=== PATIENT | male | born 1950 | race Caucasian/White ===

== ENCOUNTER 2023-03-01 16:57 | Inpatient (IN) ==
[2023-03-01 17:48] LABS: Basophils # (auto) 0.07 K/uL (0.00-0.20); Basophils % (auto) 0.9 %; Eosinophils # (auto) 0.12 K/uL (0.00-0.50); Eosinophils % (auto) 1.5 %; Hematocrit (blood only) 38.1 % (42.0-52.0); Hemoglobin 12.8 g/dl (14.0-18.0); Immature Granulocytes # (auto) 0.03 K/uL (0.01-0.20); Immature Granulocytes % (auto) 0.4 %; Lymphocytes # (auto) 2.85 K/uL (1.20-3.40); Lymphocytes % (auto) 35.8 %; Mean Corpuscular Hemoglobin 32.2 pg (25.0-34.0); Mean Corpuscular Hgb Conc 33.6 g/dL (32.0-36.0); Mean Platelet Volume 10.1 fL (9.4-12.4); Monocytes # (auto) 0.88 K/uL (0.11-0.59); Neutrophils # (auto) 4.02 K/uL (1.40-6.50); Neutrophils % (auto) 50.4 %; Platelet Count 213 K/uL (130-400); RDW Coefficient of Variation 14.5 % (11.5-14.5); RDW Standard Deviation 51.2 fL (36.4-46.3); Red Blood Count 3.97 M/uL (4.70-6.10); White Blood Count 7.97 K/ul (4.8-10.8)
[2023-03-01 18:03] LABS: Albumin Globulin Ratio 1.1 (0.9-2); Albumin Level 4.4 gm/dl (3.4-5.0); BUN Creatinine Ratio 14.5 (10-20); Bilirubin,Total 2.9 mg/dl (0.2-1.0); Calcium 9.3 mg/dl (8.6-10.3); Creatinine Clr Calc Pharmacy 66.6 ml/min; Est GFR (African American) 72.8 ml/min; Est GFR (Non-African American) 62.8 ml/min; Potassium 4.2 mmol/L (3.5-5.1); Total Protein 8.4 gm/dl (6.0-8.3)
[2023-03-01 18:06] LABS: Appearance Urine Clear (Clear); Bacteria Urine Automated Negative (Negative); Bilirubin Urine Negative (Negative); Blood Urine Negative (Negative); Cast Urine Automated 0 /lpf (0-5); Color Urine Dark Yellow; Epithelial Cell Urine Auto 0-5 /lpf (0-5); Glucose Urine UA Negative (Negative); Ketones Urine Negative (Negative); Leukocyte Esterase Urine Negative (Negative); Nitrite Urine Negative (Negative); Protein Urine Trace (Negative); RBC Urine Automated 0-4 /hpf (0-4); Specific Gravity Urine 1.012 (1.000-1.030); Urobilinogen Urine Negative (Negative); WBC Urine Automated 0 /hpf (0-5); pH Urine 5.5 (4.5-7.5)
--- NOTE | 2023-03-01 18:53 | Emergency Department Note ---
Impression & Plan Elevated LFTs, Acute Lyme disease with erythema migrans lesion 5 cm or greater in diameter ED Provider Note INFORMANT: Patient and ED PROVIDER(S): Bernardino Smith MD CHIEF COMPLAINT: Elevated LFTs PLAN: Disposition: Admitted Condition: Good Outpatient prescription management: none Referral: None MEDICAL DECISION MAKING: Patient presented because of elevated LFTs. Labs were performed. Physical examination was concerning for disseminated erythema migrans. Patient does have elevated LFTs on laboratory testing but this has findings concerning for an obstructive pattern. Patient does not have right upper quadrant abdominal pain. Ultrasound imaging was performed and revealed a gallbladder full of stones as well as nodular appearance of the liver. The patient was treated with IV Rocephin as well as doxycycline. His CBC was unremarkable. Lyme IgG and IgM w ere positive. Anaplasmosis smear negative. Babesia testing did not reveal any findings on smear but PCR sent. The patient had a consultation made with Dr. Antunez of gastroenterology. Given the LFTs he recommended an MRCP and further evaluation in the hospital. I believe this is very reasonable and consultation was made with the [facility] hospitalist service. Patient was evaluated in the ER and admitted for further management. After review of the information above and other included data, I feel the patient requires admission. Discussed with digital marketing program manager Triage Nursing notes reviewed and agree them. Vital Signs: reviewed and remarkable for no significant abnormalities Prior /Outside records reviewed: Prior [facility] laboratory and outpatient records reviewed. Differential diagnosis: Disseminated Lyme disease, hepatitis, food borne illness, infections, biliary pathology, as well as others were entertained. Diagnostics, as interpreted by me: ECG: none Cardiac Monitoring: Cardiac monitoring ordered by me: The patient was placed on continuous cardiac monitoring and observed. It revealed a normal sinus rhythm at 81 beats per minute without ectopy or evidence of dysrhythmia. Medical decision rules: none Imaging studies: Ultrasound as above HPI: The patient is a 72year old male who presents to the Emergency Room with complaints of abnormal labs. This was found at outpatient labs done today. Patient also noted feeling fatigued over the last week or so. The patient also notes the following associated symptoms, occasional fevers, dark urine. The patient has taken no medication for relieving factors. Current pain is rated as 0 /10. patient has a history of anaplasmosis 2 years ago. He also notes multiple tick bites pt denies. The patient notes pulling a tick off himself about 1 month ago. He does note having several round red lesions pop up on his chest over the last few days. also notes are some on his back. LOC, headache, diaphoresis, visual changes, neck pain, chest pain, breathing difficulties, nausea, vomiting, abdominal pain, back pain, melena, hematochezia, urinary symptoms, numbness, lymphadenopathy, or other complaints. PAST MEDICAL HISTORY: See Below, anaplasmosis, scleroderma PAST SURGICAL HISTORY: See Below, SOCIAL HISTORY: See Below, HOME MEDICATIONS: See Below ALLERGIES: See Below VITALS: See Below PHYSICAL EXAMINATION: GENERAL: Awake, alert, nontoxic-appearing, in no distress HENT: Normocephalic, atraumatic. Oropharynx unremarkable. EYES: Normal conjunctiva. Sclera non-icteric. NECK: Inspection normal. Non-tender. Supple. No nuchal rigidity. FROM. No masses. RESPIRATORY: Clear to auscultation. No wheezes. No rales. Normal respiratory effort. CARDIAC: Normal rate. Normal rhythm. No murmurs. No rubs. Extremities warm and well perfused. Pulses equal. No JVD. GI: Soft, non-distended. No tenderness to palpation. No rebound or guarding. No masses. RECTAL: Deferred. MUSCULOSKELETAL: Atraumatic. Clubbing of the upper extremities noted chest examination reveals no tenderness. The back is symmetrical on inspection without obvious abnormality. There is no CVA tenderness to palpation. No joint edema. LOWER EXTREMITIES: Calves are equal size bilaterally and non-tender. No edema. No discoloration. NEURO: Normal sensorium. No sensory or motor deficits noted. SKIN: No multiple scattered erythematous round lesions consistent with erythema migrans on the trunk as well as the right upper extremity. No petechia, purpura, or jaundice noted. Past Med/Surg History Social History Smoking Status: Former smoker Tobacco Type: Cigarettes Preferred Language: French Feels Safe at Home: Yes Allergies Allergies Allergy/AdvReac Type Severity Reaction Status Date / Time No Known Drug Allergies Allergy Unknown . Verified 06/15/15 12:38 Bactrim AdvReac Mild RASH Verified 06/29/15 13:37 Home Meds Home Medications Medication Instructions Recorded Confirmed CYCLOBENZAPRINE HCL (FLEXERIL) 10 mg PO TID PRN Pain #0 tabs 06/13/15 03/01/23 LORAZEPAM (ATIVAN) 1 mg PO BID PRN Anxiety #0 tabs 06/13/15 03/01/23 albuterol sulfate 90 mcg/actuation 2 inh inhalation Q4H PRN Other 03/01/23 03/01/23 aerosol inhaler omeprazole 20 mg capsule,delayed 20 mg PO DAILY 03/01/23 03/01/23 release Results & Data (ED) Vital Signs Vital Signs - 24 hr 03/01/23 17:03 03/01/23 17:32 03/01/23 17:29 Temperature 37.0 C Temperature Source Temporal Artery Scan Pulse Rate 96 H 90 Pulse Rate [Apical] 90 Respiratory Rate 20 13 13 Respiratory Effort / Characteristics Non-Labored Respiratory Depth Normal Blood Pressure 139/76 Blood Pressure [Right Arm] 138/83 Blood Pressure Mean 97 Blood Pressure Mean [Right Arm] 101 Blood Pressure Position [Right Arm] Semi-fowlers Pulse Oximetry 96 96 96 Oxygen Delivery Method Room Air Room Air Room Air Sepsis Recent Fever Within 48 Hours No Sepsis New/Unexplained Change in Mental Status N/A Sepsis Action Taken by Nursing No Action Required 03/01/23 17:34 03/01/23 20:43 03/01/23 21:25 Temperature Temperature Source Pulse Rate 95 H 87 Pulse Rate [Apical] 82 Respiratory Rate 20 Respiratory Effort / Characteristics Respiratory Depth Blood Pressure Blood Pressure [Right Arm] 117/70 Blood Pressure Mean Blood Pressure Mean [Right Arm] 85 Blood Pressure Position [Right Arm] Semi-fowlers Pulse Oximetry 96 Oxygen Delivery Method Room Air Sepsis Recent Fever Within 48 Hours Sepsis New/Unexplained Change in Mental Status Sepsis Action Taken by Nursing Laboratory Data 03/01/23 17:21 03/01/23 17:21 Lab Results 03/01/23 03/01/23 03/01/23 Range/Units 17:21 17:21 17:44 WBC 7.97 (4.8-10.8) K/ul RBC 3.97 L (4.70-6.10) M/uL Hgb 12.8 L (14.0-18.0) g/dl Hct 38.1 L (42.0-52.0) % MCV 96.0 (80.0-100.0) fL MCH 32.2 (25.0-34.0) pg MCHC 33.6 (32.0-36.0) g/dL RDW Std Deviation 51.2 H (36.4-46.3) fL RDW Coeff of Loreta 14.5 (11.5-14.5) % Plt Count 213 (130-400) K/uL MPV 10.1 (9.4-12.4) fL Immature Gran % (Auto) 0.4 % Neut % (Auto) 50.4 % Lymph % (Auto) 35.8 % [place] % (Auto) 11.0 % Eos % (Auto) 1.5 % Baso % (Auto) 0.9 % Neut # (Auto) 4.02 (1.40-6.50) K/uL Lymph # (Auto) 2.85 (1.20-3.40) K/uL [place] # (Auto) 0.88 H (0.11-0.59) K/uL Eos # (Auto) 0.12 (0.00-0.50) K/uL Baso # (Auto) 0.07 (0.00-0.20) K/uL Immature Gran # (Auto) 0.03 (0.01-0.20) K/uL Sodium 133 L (136-145) mmol/L Potassium 4.2 (3.5-5.1) mmol/L Chloride 99 (98-107) mmol/L Carbon Dioxide 25 (21-32) mmol/L Anion Gap 9 (3-11) BUN 17 (6-23) mg/dl Creatinine 1.17 (0.6-1.4) mg/dl Est Cr Clr Drug Dosing 66.6 ml/min Est GFR ( Amer) 72.8 ml/min Est GFR (Non-Af Amer) 62.8 ml/min BUN/Creatinine Ratio 14.5 (10-20) Glucose 108 H (70-99(Fasting)) mg/dl Calcium 9.3 (8.6-10.3) mg/dl Total Bilirubin 2.9 H (0.2-1.0) mg/dl AST 119 H (13-39) U/L ALT 255 H (7-52) U/L Alkaline Phosphatase 337 H (34-104) U/L Total Creatine Kinase 92 (30-223) U/L Total Protein 8.4 H (6.0-8.3) gm/dl Albumin 4.4 (3.4-5.0) gm/dl Globulin 4.0 (2.5-4.0) gm/dl Albumin/Globulin Ratio 1.1 (0.9-2) Lipase 74 (11-82) U/L Urine Color Dark Yellow Urine Appearance Clear (Clear) Urine pH 5.5 (4.5-7.5) Ur Specific [place] 1.012 (1.000-1.030) Urine Protein Trace H (Negative) Urine Glucose (UA) Negative (Negative) Urine Ketones Negative (Negative) Urine Blood Negative (Negative) Urine Nitrite Negative (Negative) Urine Bilirubin Negative (Negative) Urine Urobilinogen Negative (Negative) Ur Leukocyte Esterase Negative (Negative) Urine WBC (Auto) 0 (0-5) /hpf Urine RBC (Auto) 0-4 (0-4) /hpf U Hyaline Cast (Auto) 0 (0-5) /lpf U Epithel Cells (Auto) 0-5 (0-5) /lpf Urine Bacteria (Auto) Negative (Negative) Anaplasma Smear See Comment Babesia Smear See Comment Lyme Disease IgG Ab (Negative) Lyme Disease IgM Ab (Negative) 03/01/23 Range/Units 18:17 WBC (4.8-10.8) K/ul RBC (4.70-6.10) M/uL Hgb (14.0-18.0) g/dl Hct (42.0-52.0) % MCV (80.0-100.0) fL MCH (25.0-34.0) pg MCHC (32.0-36.0) g/dL RDW Std Deviation (36.4-46.3) fL RDW Coeff of Loreta (11.5-14.5) % Plt Count (130-400) K/uL MPV (9.4-12.4) fL Immature Gran % (Auto) % Neut % (Auto) % Lymph % (Auto) % [place] % (Auto) % Eos % (Auto) % Baso % (Auto) % Neut # (Auto) (1.40-6.50) K/uL Lymph # (Auto) (1.20-3.40) K/uL [place] # (Auto) (0.11-0.59) K/uL Eos # (Auto) (0.00-0.50) K/uL Baso # (Auto) (0.00-0.20) K/uL Immature Gran # (Auto) (0.01-0.20) K/uL Sodium (136-145) mmol/L Potassium (3.5-5.1) mmol/L Chloride (98-107) mmol/L Carbon Dioxide (21-32) mmol/L Anion Gap (3-11) BUN (6-23) mg/dl Creatinine (0.6-1.4) mg/dl Est Cr Clr Drug Dosing ml/min Est GFR ( Amer) ml/min Est GFR (Non-Af Amer) ml/min BUN/Creatinine Ratio (10-20) Glucose (70-99(Fasting)) mg/dl Calcium (8.6-10.3) mg/dl Total Bilirubin (0.2-1.0) mg/dl AST (13-39) U/L ALT (7-52) U/L Alkaline Phosphatase (34-104) U/L Total Creatine Kinase (30-223) U/L Total Protein (6.0-8.3) gm/dl Albumin (3.4-5.0) gm/dl Globulin (2.5-4.0) gm/dl Albumin/Globulin Ratio (0.9-2) Lipase (11-82) U/L Urine Color Urine Appearance (Clear) Urine pH (4.5-7.5) Ur Specific [place] (1.000-1.030) Urine Protein (Negative) Urine Glucose (UA) (Negative) Urine Ketones (Negative) Urine Blood (Negative) Urine Nitrite (Negative) Urine Bilirubin (Negative) Urine Urobilinogen (Negative) Ur Leukocyte Esterase (Negative) Urine WBC (Auto) (0-5) /hpf Urine RBC (Auto) (0-4) /hpf U Hyaline Cast (Auto) (0-5) /lpf U Epithel Cells (Auto) (0-5) /lpf Urine Bacteria (Auto) (Negative) Anaplasma Smear Babesia Smear Lyme Disease IgG Ab Positive A (Negative) Lyme Disease IgM Ab Positive A (Negative) Administered Medications Discontinued Medications Ceftriaxone Sodium (Rocephin) 2,000 mg in 70 mls @ 140 mls/hr IV NOW STA Stop: 03/01/23 20:09 Last Infusion: 03/01/23 20:37 Dose: 0 mls/hr Documented By: Admin: 03/01/23 20:00 Dose: 140 mls/hr Documented By: QGV Doxycycline Hyclate 100 mg/ (Dextrose) 110 mls @ 50 mls/hr IV NOW STA Stop: 03/01/23 22:32 Last Infusion: 03/01/23 23:11 Dose: 0 mls/hr Documented By: Admin: 03/01/23 20:37 Dose: 50 mls/hr Documented By: AB Imaging Data Radiologist's Impression: Gallbladder Ultrasound 03/01/23 17:49 ULTRASOUND RIGHT UPPER QUADRANT ABDOMEN CLINICAL HISTORY: Elevated hepatic transaminases. COMPARISON STUDY: No priors. TECHNIQUE: Real-time, grayscale, and color flow sonography of the right upper quadrant of the abdomen was performed. Images are reviewed in the transverse and longitudinal planes. FINDINGS: Liver: The liver is normal in size and demonstrates heterogeneously increased echotexture indicating steatosis. There is mild nodularity of the hepatic surface contour suggesting morphologic changes of cirrhosis. There is no intrahepatic biliary ductal dilatation. The main portal vein is patent. Gallbladder: The gallbladder is filled with shadowing gallstones. The gallbladder wall is mildly thickened measuring up to 3 mm. No pericholecystic fluid is identified and a sonographic Rollins's sign is reportedly absent. The common bile duct measures up to 0.3 cm in diameter. Pancreas: Not well-visualized due to overlying bowel gas. Right kidney: Survey images of the right kidney demonstrate normal size and echotexture. There is no hydronephrosis. A 2.9 cm cyst arises from the lower pole. Ascites: None. IMPRESSION: 1. The liver shows evidence of steatosis, and nodularity of the surface contour suggests early morphologic change of cirrhosis. 2. Cholelithiasis without sonographic evidence of acute cholecystitis. 3. Mild gallbladder wall thickening is nonspecific and likely related to adjacent hepatocellular disease. If there is strong clinical concern for acute cholecystitis a nuclear hepatobiliary scan could be considered. ACT 112: Negative or not required by law. Electronically signed by: James Orosco M.D. 03/01/2023 7:36 PM Discharge Plan Visit Data Chief Complaint: Abnormal Labs/Diagnostic Testing Stated Complaint: ABNORMAL TESTS ED Provider: Bernardino Smith Discharge Problem: Elevated LFTs, Acute Lyme disease with erythema migrans lesion 5 cm or greater in diameter Patient Disposition: Admitted As Inpatient Discharge Instructions Interventions: ED Discharge Assessment Last Done: 03/01/23 23:15
[2023-03-01 19:33] LABS: Lyme Ab IgG w/WB Rflx Positive (Negative); Lyme Ab IgM w/WB Rflx Positive (Negative)
--- NOTE | 2023-03-01 19:38 | Ultrasound Report ---
ULTRASOUND RIGHT UPPER QUADRANT ABDOMEN CLINICAL HISTORY: Elevated hepatic transaminases. COMPARISON STUDY: No priors. TECHNIQUE: Real-time, grayscale, and color flow sonography of the right upper quadrant of the abdomen was performed. Images are reviewed in the transverse and longitudinal planes. FINDINGS: Liver: The liver is normal in size and demonstrates heterogeneously increased echotexture indicating steatosis. There is mild nodularity of the hepatic surface contour suggesting morphologic changes of cirrhosis. There is no intrahepatic biliary ductal dilatation. The main portal vein is patent. Gallbladder: The gallbladder is filled with shadowing gallstones. The gallbladder wall is mildly thic kened measuring up to 3 mm. No pericholecystic fluid is identified and a sonographic Rollins's sign is reportedly absent. The common bile duct measures up to 0.3 cm in diameter. Pancreas: Not well-visualized due to overlying bowel gas. Right kidney: Survey images of the right kidney demonstrate normal size and echotexture. There is no hydronephrosis. A 2.9 cm cyst arises from the lower pole. Ascites: None. IMPRESSION: 1. The liver shows evidence of steatosis, and nodularity of the surface contour suggests early morpho logic change of cirrhosis. 2. Cholelithiasis without sonographic evidence of acute cholecystitis. 3. Mild gallbladder wall thickening is nonspecific and likely related to adjacent hepatocellular dise ase. If there is strong clinical concern for acute cholecystitis a nuclear hepatobiliary scan could b e considered. ACT 112: Negative or not required by law. Electronically signed by: James Orosco M.D. 03/01/2023 7:36 PM
[2023-03-01] MEDS ORDERED: cefTRIAXone SODIUM 2,000 MG/70 ML BAG IV STA (19:40)
[2023-03-01] MEDS ORDERED: DOXYCYCLINE HYCLATE 100 MG in DEXTROSE 5% 100 ML IV STA (20:21)
--- NOTE | 2023-03-01 22:44 | History & Physical Report ---
Date of Service March 01, 2023 Assessment & Plan (1) Elevated LFTs: Plan: 72-year-old male with past medical history significant for crest syndrome, pulmonary fibrosis, aortic valve sclerosis, GERD, BPH, lipodermatosclerosis of both lower extremities, generalized anxiety disorder, history of anaplasmosis, presents with not feeling well for about 2 weeks and went to PCP today and outpatient labs showed elevated LFTs and advised to come to the ER. Elevated LFTs Icterus present Gallbladder ultrasound shows gallstones and possible early cirrhosis ER discussed with GI plan for MRCP. We will keep n.p.o. for now IV fluids Repeat labs in a.m. we will also do hepatitis panel Anaplasmosis screen negative Acute Lyme disease with erythema migrans lesions greater than 5 cm Patient states he took out tick about 5 weeks ago. Having low-grade fevers for last 2 weeks. History of anaplasmosis in the past Anaplasma screen is negative but could be the cause of elevated LFTs We will monitor the response Crest syndrome Pulmonary fibrosis follows with pulmonary Currently not under any treatment GERD On omeprazole Generalized anxiety disorder Ativan as needed DVT prophylaxis SCDs for now. If no procedure planned can place on [facility] medical floor Full code (2) Acute Lyme disease with erythema migrans lesion 5 cm or greater in diameter: History of Present Illness Chief Complaint: Fevers and not feeling well Primary Care Provider: Brice Rahman MD 72-year-old male with past medical history significant for crest syndrome, pulmonary fibrosis, aortic valve sclerosis, GERD, BPH, lipodermatosclerosis of both lower extremities, generalized anxiety disorder, history of anaplasmosis, presents with not feeling well for about 2 weeks and went to PCP today and outpatient labs showed elevated LFTs and advised to come to the ER. Patient states he took out tick about 5 weeks ago, [place] A month ago he had a fever but that subsided. Since last 2 weeks he is having low-grade fevers in the evenings with night sweats. Loss of appetite last 2 weeks. Not feeling well. Urine became dark last couple of weeks. On and off constipation. No abdominal pain. No chest pain. No back pain. No headaches. No blurred visions or earache or runny nose or sore throat. Occasional cough. Symptoms of difficulty swallowing sometimes because of his GERD. No nausea. Currently resting comfortably hemodynamically stable. Past medical history as mentioned above Past surgical history colonoscopy. Social history . Smoked from 1970- 1972 0.25 packs a day. Alcohol occasional. No drug use Family history father had prostate cancer, hypertension. Mother had CAD fatal [place] at age of 73, hypertension. Sister had TB at age of 9. Brother has diabetes, hypertension. Allergies Allergy/AdvReac Type Severity Reaction Status Date / Time No Known Drug Allergies Allergy Unknown . Verified 06/15/15 12:38 Bactrim AdvReac Mild RASH Verified 06/29/15 13:37 Home Medications Medication Instructions Recorded Confirmed Type CYCLOBENZAPRINE HCL (FLEXERIL) 10 mg PO TID PRN Pain #0 tabs 06/13/15 03/01/23 History LORAZEPAM (ATIVAN) 1 mg PO BID PRN Anxiety #0 tabs 06/13/15 03/01/23 History albuterol sulfate 90 mcg/actuation 2 inh inhalation Q4H PRN Other 03/01/23 03/01/23 History aerosol inhaler omeprazole 20 mg capsule,delayed 20 mg PO DAILY 03/01/23 03/01/23 History release Past Med/Surg History Social History Smoking Status: Former smoker Tobacco Type: Cigarettes Cigarettes Per Day: In the 1969's about a 1/2 pack a day.; Second Hand Exposure: No; Do You Dip or Chew Tobacco: No (In the s.); Tobacco Cessation Education Requested by Patient: No Hx Alcohol Use: Yes Alcohol type: beer and hard liquor Hx Substance Use: No Preferred Language: Puerto Rican Communication Ability: Effective Geodetic Advisor Required: No Beliefs That Will Affect Care: None Current Living Situation: Spouse Other Information That Helps Us Care for You: No Feels Safe at Home: Yes Safety Concerns: Feels Safe At This Time Assistive Devices: Glasses Review of Systems Review of Systems: All systems reviewed & are unremarkable except as noted in HPI & below Physical Exam Physical Exam: General- Not in dsitress Head- atraumatic Eyes- PERRL.Icterus present ENT- oropharynx clear Neck- supple, no JVD, no adenopathy, carotids +2/2, no bruits appreciated Lungs- clear to auscultation no wheezing or crackles. Heart- regular rhythm; no murmur, no gallop. Abdomen- normal bowel sounds, soft, nontender, no distension. Extremities- no pretibial edema, no erythema. Neuro- alert, oriented x 3; PERRL,no facial palsy; no dysarthria; non focal. Skin- bulls eye rash seen on the back> 5cm. erythematous rashes seen on back, abdomen and upper extremity Results & Data Results & Data Vital Signs (Past 12 Hours) Vital Signs Temp Pulse Pulse Resp BP BP Pulse Ox 03/01/23 21:25 87 03/01/23 20:43 82 20 117/70 96 03/01/23 17:34 95 H 03/01/23 17:29 90 13 138/83 96 03/01/23 17:32 90 13 96 03/01/23 17:03 37.0 C 96 H 20 139/76 96 O2 Del Method 03/01/23 21:25 03/01/23 20:43 Room Air 03/01/23 17:34 03/01/23 17:29 Room Air 03/01/23 17:32 Room Air 03/01/23 17:03 Room Air Diagnostic Findings Laboratory Results WBC 7.97 K/ul (4.8-10.8) 03/01/23 17:21 RBC 3.97 M/uL (4.70-6.10) L 03/01/23 17:21 Hgb 12.8 g/dl (14.0-18.0) L 03/01/23 17:21 Hct 38.1 % (42.0-52.0) L 03/01/23 17:21 MCV 96.0 fL (80.0-100.0) 03/01/23 17:21 MCH 32.2 pg (25.0-34.0) 03/01/23 17:21 MCHC 33.6 g/dL (32.0-36.0) 03/01/23 17:21 RDW Std Deviation 51.2 fL (36.4-46.3) H 03/01/23 17:21 RDW Coeff of [place] 14.5 % (11.5-14.5) 03/01/23 17:21 Plt Count 213 K/uL (130-400) 03/01/23 17:21 MPV 10.1 fL (9.4-12.4) 03/01/23 17:21 Immature Gran % (Auto) 0.4 % 03/01/23 17:21 Neut % (Auto) 50.4 % 03/01/23 17:21 Lymph % (Auto) 35.8 % 03/01/23 17:21 Tama % (Auto) 11.0 % 03/01/23 17:21 Eos % (Auto) 1.5 % 03/01/23 17:21 Baso % (Auto) 0.9 % 03/01/23 17:21 Neut # (Auto) 4.02 K/uL (1.40-6.50) 03/01/23 17:21 Lymph # (Auto) 2.85 K/uL (1.20-3.40) 03/01/23 17:21 Tama # (Auto) 0.88 K/uL (0.11-0.59) H 03/01/23 17:21 Eos # (Auto) 0.12 K/uL (0.00-0.50) 03/01/23 17:21 Baso # (Auto) 0.07 K/uL (0.00-0.20) 03/01/23 17:21 Immature Gran # (Auto) 0.03 K/uL (0.01-0.20) 03/01/23 17:21 Sodium 133 mmol/L (136-145) L 03/01/23 17:21 Potassium 4.2 mmol/L (3.5-5.1) 03/01/23 17:21 Chloride 99 mmol/L (98-107) 03/01/23 17:21 Carbon Dioxide 25 mmol/L (21-32) 03/01/23 17:21 Anion Gap 9 (3-11) 03/01/23 17:21 BUN 17 mg/dl (6-23) 03/01/23 17:21 Creatinine 1.17 mg/dl (0.6-1.4) 03/01/23 17:21 Est Cr Clr Drug Dosing 66.6 ml/min 03/01/23 17:21 Est GFR ( Amer) 72.8 ml/min 03/01/23 17:21 Est GFR (Non-Af Amer) 62.8 ml/min 03/01/23 17:21 BUN/Creatinine Ratio 14.5 (10-20) 03/01/23 17:21 Glucose 108 mg/dl (70-99(Fasting)) H 03/01/23 17:21 Calcium 9.3 mg/dl (8.6-10.3) 03/01/23 17:21 Total Bilirubin 2.9 mg/dl (0.2-1.0) H 03/01/23 17:21 AST 119 U/L (13-39) H 03/01/23 17:21 ALT 255 U/L (7-52) H 03/01/23 17:21 Alkaline Phosphatase 337 U/L (34-104) H 03/01/23 17:21 Total Creatine Kinase 92 U/L (30-223) 03/01/23 17:21 Total Protein 8.4 gm/dl (6.0-8.3) H 03/01/23 17:21 Albumin 4.4 gm/dl (3.4-5.0) 03/01/23 17:21 Globulin 4.0 gm/dl (2.5-4.0) 03/01/23 17:21 Albumin/Globulin Ratio 1.1 (0.9-2) 03/01/23 17:21 Lipase 74 U/L (11-82) 03/01/23 17:21 Urine Color Dark Yellow 03/01/23 17:44 Urine Appearance Clear (Clear) 03/01/23 17:44 Urine pH 5.5 (4.5-7.5) 03/01/23 17:44 Ur Specific [place] 1.012 (1.000-1.030) 03/01/23 17:44 Urine Protein Trace (Negative) H 03/01/23 17:44 Urine Glucose (UA) Negative (Negative) 03/01/23 17:44 Urine Ketones Negative (Negative) 03/01/23 17:44 Urine Blood Negative (Negative) 03/01/23 17:44 Urine Nitrite Negative (Negative) 03/01/23 17:44 Urine Bilirubin Negative (Negative) 03/01/23 17:44 Urine Urobilinogen Negative (Negative) 03/01/23 17:44 Ur Leukocyte Esterase Negative (Negative) 03/01/23 17:44 Urine WBC (Auto) 0 /hpf (0-5) 03/01/23 17:44 Urine RBC (Auto) 0-4 /hpf (0-4) 03/01/23 17:44 U Hyaline Cast (Auto) 0 /lpf (0-5) 03/01/23 17:44 U Epithel Cells (Auto) 0-5 /lpf (0-5) 03/01/23 17:44 Urine Bacteria (Auto) Negative (Negative) 03/01/23 17:44 Anaplasma Smear See Comment 03/01/23 17:21 Babesia Smear See Comment 03/01/23 17:21 Lyme Disease IgG Ab Positive (Negative) A 03/01/23 18:17 Lyme Disease IgM Ab Positive (Negative) A 03/01/23 18:17 Impressions Gallbladder Ultrasound 03/01/23 17:49 ULTRASOUND RIGHT UPPER QUADRANT ABDOMEN CLINICAL HISTORY: Elevated hepatic transaminases. COMPARISON STUDY: No priors. TECHNIQUE: Real-time, grayscale, and color flow sonography of the right upper quadrant of the abdomen was performed. Images are reviewed in the transverse and longitudinal planes. FINDINGS: Liver: The liver is normal in size and demonstrates heterogeneously increased echotexture indicating steatosis. There is mild nodularity of the hepatic surface contour suggesting morphologic changes of cirrhosis. There is no intrahepatic biliary ductal dilatation. The main portal vein is patent. Gallbladder: The gallbladder is filled with shadowing gallstones. The gallbladder wall is mildly thickened measuring up to 3 mm. No pericholecystic fluid is identified and a sonographic Rollins's sign is reportedly absent. The common bile duct measures up to 0.3 cm in diameter. Pancreas: Not well-visualized due to overlying bowel gas. Right kidney: Survey images of the right kidney demonstrate normal size and echotexture. There is no hydronephrosis. A 2.9 cm cyst arises from the lower pole. Ascites: None. IMPRESSION: 1. The liver shows evidence of steatosis, and nodularity of the surface contour suggests early morphologic change of cirrhosis. 2. Cholelithiasis without sonographic evidence of acute cholecystitis. 3. Mild gallbladder wall thickening is nonspecific and likely related to adjacent hepatocellular disease. If there is strong clinical concern for acute cholecystitis a nuclear hepatobiliary scan could be considered. ACT 112: Negative or not required by law. Electronically signed by: James Orosco M.D. 03/01/2023 7:36 PM Code Status & VTE Plan VTE Prophylaxis Plan VTE Prophylaxis will be ordered: Yes
[2023-03-01] MEDS: D5W AND 1/2NSS 1,000 ML IV SCH (23:41)
[2023-03-01] MEDS ORDERED: TAMSULOSIN HCL 0.4 MG CAP PO ONE (23:42)
[2023-03-01] MEDS ORDERED: ALBUTEROL HFA 8 GM INHALER INH PRN (23:42)
[2023-03-01] MEDS ORDERED: LORazepam 1 MG TAB PO PRN (23:44)
--- NOTE | 2023-03-02 08:10 | Hospitalist Progress Note ---
Date of Service March 02, 2023 Assessment & Plan (1) Elevated LFTs: (2) Cirrhosis: (3) Acute Lyme disease with erythema migrans lesion 5 cm or greater in diameter: Plan Mr. Moreno is a 72-year-old male with past medical history significant for crest syndrome, pulmonary fibrosis, aortic valve sclerosis, GERD, BPH, lipodermatosclerosis of both lower extremities, generalized anxiety disorder, history of anaplasmosis, presents with not feeling well for about 2 weeks and went to PCP today and outpatient labs showed elevated LFTs and advised to come to the ER. Lyme screen was positive. Patient also noted to have scleral icterus. Imaging revealed concerns for cirrhosis and gallbladder thickening. MRCP did reveal cholelithiasis but no cholecystitis. Patient reports symptoms improving overall. Will continue regimen for Lyme disease and follow up autoimmune panel while tr ending daily LFTs. #Elevated LFTs #Icterus present #Hepatitic steatosis with ?cirrhosis ?autoiumme eitology given known history Gallbladder ultrasound shows gallstones and possible early cirrhosis s/p MRCP Follow up autoimmune panel and hepatitis panel Trend CMP GI on consult, if no improvement will consider HIDA -DC CTX #Acute Lyme disease #erythema migrans lesions greater than 5 cm +Lyme serology, no inclusions on smear -Transition to po doxy 100mg BID #Crest syndrome c/b Pulmonary fibrosis 1. Diffuse parenchymal lung disease: Areas involved include subpleural reticular changes in the in upper lobes as well as focal fibrosis in right middle lobe, lingula and medial basal segments of lower lobes. The disease pattern noted could be due to episodes of recurrent aspiration. Given history of longstanding uncontrolled acid reflux, this remains a high possibility. Fibrotic NSIP due to scleroderma would be another differential. Dx 2000 SCL 70 ++ -No oxygen requirement or current medication #GERD -On omeprazole #Generalized anxiety disorder Ativan as needed #Multiple IPMN noted on MRCP -Repeat in 6 months DVT transition to lovenox Disposition medical floor Full code Admission and Anticipated Discharge Date Admission Date: March 01, 2023 Subjective Patient reports marked improvement since admission, noting the rash has been disappearing rapidly Patient denies any abdominal pain or known history of liver issues, as well as any other acute concerns this am NPO at time of exam for MRCP Review of Systems Review of Systems: All systems reviewed & are unremarkable except as noted in Subjective Physical Exam Constitutional: laying comfortably in bed, NAD Eyes: +icterus ENMT: external ear and nose normal, oropharynx normal Neck: trachea midline, no thyromegaly Respiratory: normal respiratory effort, lungs clear to auscultation Cardiovascular: RRR, no murmur, no edema Gastrointestinal (Abdomen): normal bowel sounds, soft, nontender, no hepatosplenomegaly Musculoskeletal: no cyanosis or clubbing, extremities motor strength 5/5 Skin: large erythematous lesion on right chest/abdomen with fading border, target lesion on back; patient reports improvement Results & Data Results & Data Vital Signs (Past 12 Hours) Vital Signs Temp Pulse Pulse Pulse Resp BP BP 03/02/23 07:30 36.9 C 93 H 16 136/80 03/01/23 23:38 03/01/23 23:38 03/01/23 23:38 36.8 C 101 H 20 151/75 H 03/01/23 23:15 03/01/23 22:37 81 18 120/71 03/01/23 21:25 87 03/01/23 20:43 82 20 117/70 Pulse Ox O2 Del Method 03/02/23 07:30 96 Room Air 03/01/23 23:38 Room Air 03/01/23 23:38 Room Air 03/01/23 23:38 96 Room Air 03/01/23 23:15 Room Air 03/01/23 22:37 96 03/01/23 21:25 03/01/23 20:43 96 Room Air Laboratory Results Short CBC 03/02/23 Range/Units 07:58 WBC 7.22 (4.8-10.8) K/ul Hgb 12.7 L (14.0-18.0) g/dl Hct 37.8 L (42.0-52.0) % Plt Count 208 (130-400) K/uL BMP 03/01/23 03/02/23 17:21 07:58 Sodium 133 L 134 L Potassium 4.2 4.1 Chloride 99 101 Carbon Dioxide 25 27 BUN 17 15 Creatinine 1.17 0.98 Glucose 108 H 131 H Calcium 9.3 9.2 Cardiac Enzymes 03/01/23 Range/Units 17:21 Total Creatine Kinase 92 (30-223) U/L Liver Function 03/01/23 03/02/23 Range/Units 17:21 07:58 Total Bilirubin 2.9 H 2.6 H (0.2-1.0) mg/dl Direct Bilirubin 1.4 H (0-0.2) mg/dl AST 119 H 101 H (13-39) U/L ALT 255 H 225 H (7-52) U/L Alkaline Phosphatase 337 H 312 H (34-104) U/L Albumin 4.4 4.1 (3.4-5.0) gm/dl Urine 03/01/23 Range/Units 17:44 Urine Color Dark Yellow Urine Appearance Clear (Clear) Urine pH 5.5 (4.5-7.5) Ur Specific [place] 1.012 (1.000-1.030) Urine Protein Trace H (Negative) Urine Glucose (UA) Negative (Negative) Diagnostic Findings No new data to review Medications Administered Home Medications Medication Instructions Recorded Confirmed Last Taken CYCLOBENZAPRINE HCL (FLEXERIL) 10 mg PO TID PRN Pain #0 tabs 06/13/15 03/01/23 Unknown LORAZEPAM (ATIVAN) 1 mg PO BID PRN Anxiety #0 tabs 06/13/15 03/01/23 Unknown albuterol sulfate 90 mcg/actuation 2 inh inhalation Q4H PRN Other 03/01/23 03/01/23 Unknown aerosol inhaler omeprazole 20 mg capsule,delayed 20 mg PO DAILY 03/01/23 03/01/23 03/01/23 release Active Medications Generic Name Dose Route Start Last Admin Trade Name Freq PRN Reason Stop Dose Admin Pantoprazole Sodium 40 mg 03/02/23 09:00 03/02/23 09:07 Pantoprazole 40 Mg Tab PO 04/01/23 08:59 40 mg DAILY MEI Administration
[2023-03-02 08:38] LABS: Basophils # (auto) 0.06 K/uL (0.00-0.20); Basophils % (auto) 0.8 %; Eosinophils % (auto) 1.4 %; Hematocrit (blood only) 37.8 % (42.0-52.0); Hemoglobin 12.7 g/dl (14.0-18.0); Immature Granulocytes # (auto) 0.03 K/uL (0.01-0.20); Immature Granulocytes % (auto) 0.4 %; Lymphocytes # (auto) 2.26 K/uL (1.20-3.40); Lymphocytes % (auto) 31.3 %; Mean Corpuscular Hemoglobin 32.3 pg (25.0-34.0); Mean Corpuscular Hgb Conc 33.6 g/dL (32.0-36.0); Mean Corpuscular Volume 96.2 fL (80.0-100.0); Mean Platelet Volume 10.1 fL (9.4-12.4); Monocytes % (auto) 9.7 %; Neutrophils # (auto) 4.07 K/uL (1.40-6.50); Neutrophils % (auto) 56.4 %; Platelet Count 208 K/uL (130-400); RDW Coefficient of Variation 14.5 % (11.5-14.5); RDW Standard Deviation 51.5 fL (36.4-46.3); Red Blood Count 3.93 M/uL (4.70-6.10); White Blood Count 7.22 K/ul (4.8-10.8)
[2023-03-02 08:45] LABS: Albumin Level 4.1 gm/dl (3.4-5.0); BUN Creatinine Ratio 15.3 (10-20); Bilirubin Direct 1.4 mg/dl (0-0.2); Bilirubin,Total 2.6 mg/dl (0.2-1.0); Calcium 9.2 mg/dl (8.6-10.3); Creatinine Clr Calc Pharmacy 79.3 ml/min; Est GFR (African American) 90.2 ml/min; Est GFR (Non-African American) 77.8 ml/min; Potassium 4.1 mmol/L (3.5-5.1)
[2023-03-02] MEDS ORDERED: DOXYCYCLINE HYCLATE 100 MG in DEXTROSE 5% 100 ML IV SCH (09:00)
[2023-03-02] MEDS: D5W AND 1/2NSS 1,000 ML IV SCH ×2 (09:06→17:43)
[2023-03-02] MEDS: PANTOprazole 40 MG TAB PO SCH (09:07)
--- NOTE | 2023-03-02 13:49 | Gastrointestinal Consultation ---
Date of Consultation March 02, 2023 Assessment & Plan (1) Elevated LFTs: (2) Cirrhosis: (3) Cholelithiasis: Plan elevated LFTs could be 2/2 a CBD stone that has passed, appears to be improving; possible cholecystitis US was not definitive for it, he is not in pain at this time nor did he have pain; additionally he has possible early cirrhosis on imaging recs: --trend LFTs daily --check workup for other causes of liver disease including AMA, NADEGE, ASMA, ceruloplasmin, ferritin and transferrin saturation --if LFTs do not continue to improve consider a HIDA scan Thank you for allowing me to participate in the care of this patient. History of Present Illness Attending Physician: Alma Villegas MD History of Present Illness 72 yo male with hx CREST syndrome, pulm fibrosis, aortic valve sclerosis, GERD, anaplasmosis in 2020 here with abnormal outpt labs including elevated lfts. Found to be lyme positive here in hospital, anaplasma screen negative. US shows cholelithiasis and possible early cirrhosis with steatosis, no definite cholecystitis. Currently denies any abdominal pain, nausea, does note recently having a decreased appetite. not obese, denies alcohol abuse. labs reviewed. Allergies Allergy/AdvReac Type Severity Reaction Status Date / Time No Known Drug Allergies Allergy Unknown . Verified 06/15/15 12:38 Bactrim AdvReac Mild RASH Verified 06/29/15 13:37 Home Medications Medication Instructions Recorded Confirmed Type CYCLOBENZAPRINE HCL (FLEXERIL) 10 mg PO TID PRN Pain #0 tabs 06/13/15 03/01/23 History LORAZEPAM (ATIVAN) 1 mg PO BID PRN Anxiety #0 tabs 06/13/15 03/01/23 History albuterol sulfate 90 mcg/actuation 2 inh inhalation Q4H PRN Other 03/01/23 03/01/23 History aerosol inhaler omeprazole 20 mg capsule,delayed 20 mg PO DAILY 03/01/23 03/01/23 History release Patient History Social History Smoking Status: Former smoker Tobacco Type: Cigarettes Cigarettes Per Day: In the s about a 1/2 pack a day.; Second Hand Exposure: No; Do You Dip or Chew Tobacco: No (In the 70's.); Tobacco Cessation Education Requested by Patient: No Hx Alcohol Use: Yes Alcohol type: beer and hard liquor Hx Substance Use: No Preferred Language: Hungarian Communication Ability: Effective Field Human Resources Manager Required: No Beliefs That Will Affect Care: None Current Living Situation: Spouse Other Information That Helps Us Care for You: No Feels Safe at Home: Yes Safety Concerns: Feels Safe At This Time Assistive Devices: Glasses Review of Systems Constitutional: no fever, no chills and no weight loss Eyes: as per Subjective / HPI Ear, Nose, Mouth, Throat: as per Subjective / HPI Respiratory: no dyspnea and no dyspnea on exertion Cardiovascular: no chest pain and no palpitations Gastrointestinal: as per Subjective / HPI Musculoskeletal: no joint pain and no swelling Integumentary: no rash and no lesions Neurologic: no numbness and no paresthesia Psychiatric: no depression and no anxiety Endocrine: no fatigue Hematologic / Lymphatic: no easy bleeding and no easy bruising Physical Exam Constitutional: WD/WN, vitals as above Eyes: EOM intact bilaterally Neck: normal visual inspection Respiratory: normal respiratory effort, lungs clear to auscultation Cardiovascular: RRR, no murmur, no edema Gastrointestinal (Abdomen): Inspection/Auscultation: abdomen normal to inspection; abdomen not distended Percussion/Palpation: abdomen soft; abdomen nontender and no hepatosplenomegaly Musculoskeletal: Head/Neck/Chest: normocephalic and head atraumatic Extremities: no cyanosis Skin: no rashes, warm and dry Neurologic: moves all extremities Psychiatric: Orientation: alert and cooperative Affect: euthymic affect Results & Data Vital Signs (Past 12 Hours) Vital Signs Temp Pulse Resp BP Pulse Ox O2 Del Method 03/02/23 08:15 Room Air 03/02/23 07:30 36.9 C 93 H 16 136/80 96 Room Air PG Care Time/CCT Total # of Minutes Spent Total Time Spent with Patient: Total time spent is greater than 50% in coordination of care (as documented) at patient's floor/unit and/or counseling patient: Coding Level of Care Code 26185 INT INP/OBS CARE 2/55MIN Diagnoses Elevated LFTs R79.89 Cirrhosis K74.60 Cholelithiasis K80.20
--- NOTE | 2023-03-02 17:12 | Magnetic Resonance Report ---
MR MRCP CLINICAL HISTORY: elevated lft, gall stones TECHNIQUE: Multiplanar multisequence MR images of the abdomen were obtained, as per MRCP protocol. . COMPARISON: Comparison is made to gallbladder ultrasound 03/01/2023 FINDINGS: Lower chest: No acute abnormality Liver: Unremarkable. No focal lesions are seen. Gallbladder and biliary tree: Cholelithiasis is seen without evidence of cholecystitis. No intra- or extrahepatic biliary ductal dilation. Pancreas: Side branch IPMN these are seen measuring up to 6 mm. Spleen: Unremarkable. Adrenals: Unremarkable. Kidneys and ureters: Renal cysts are seen. Bowel: Unremarkable. Lymph nodes Retroperitoneal: Subcentimeter lymph nodes are noted. Mesenteric: Unremarkable. Peritoneum: Normal Vessels: Unremarkable. Abdominal wall: Unremarkable. Bones: Unremarkable. IMPRESSION: 1. Cholelithiasis without evidence of cholecystitis. 2. Multiple IPMN's are seen. According to [place] criteria, MRCP can be performed in 6 months, then every 2 years if there is no change.4 ACT 112: Negative or not required by law. Electronically signed by: Kofi Heredia M.D. 03/02/2023 5:10 PM
[2023-03-02] MEDS ORDERED: cefTRIAXone SODIUM 2,000 MG in DEXTROSE 5% 50 ML IV SCH (20:00)
[2023-03-02] MEDS: TAMSULOSIN HCL 0.4 MG CAP PO SCH (20:53)
[2023-03-02] MEDS: DOXYCYCLINE HYCLATE 100 MG CAP PO SCH (20:54)
[2023-03-03 05:48] LABS: HBSAG NON-REACTIVE (NON-REACTIVE); Hepatitis A Antibody IgM NON-REACTIVE (NON-REACTIVE); Hepatitis B Core Antibody IgM NON-REACTIVE (NON-REACTIVE)
[2023-03-03 08:00] LABS: Hematocrit (blood only) 37.5 % (42.0-52.0); Hemoglobin 12.7 g/dl (14.0-18.0); Mean Corpuscular Hemoglobin 32.6 pg (25.0-34.0); Mean Corpuscular Hgb Conc 33.9 g/dL (32.0-36.0); Mean Corpuscular Volume 96.4 fL (80.0-100.0); Platelet Count 221 K/uL (130-400); RDW Coefficient of Variation 14.8 % (11.5-14.5); RDW Standard Deviation 52.2 fL (36.4-46.3); Red Blood Count 3.89 M/uL (4.70-6.10); White Blood Count 6.38 K/ul (4.8-10.8)
[2023-03-03] MEDS: DOXYCYCLINE HYCLATE 100 MG CAP PO SCH ×2 (08:11→20:51)
[2023-03-03] MEDS: PANTOprazole 40 MG TAB PO SCH (08:11)
[2023-03-03] MEDS: ENOXAPARIN INJ 40 MG/0.4 ML SYR SQ SCH (08:12)
[2023-03-03 09:26] LABS: BUN Creatinine Ratio 17.6 (10-20); Bilirubin,Total 1.7 mg/dl (0.2-1.0); Calcium 9.3 mg/dl (8.6-10.3); Creatinine Clr Calc Pharmacy 85.4 ml/min; Est GFR (African American) 98.6 ml/min; Est GFR (Non-African American) 85.1 ml/min; Magnesium 2.1 mg/dl (1.7-2.4); Phosphorus 2.7 mg/dl (2.5-4.9); Potassium 4.3 mmol/L (3.5-5.1)
[2023-03-03 09:29] LABS: ALC (manual) 3.38 K/uL (1.2-3.4); ANC (manual) 2.55 K/uL (1.4-6.5); Eosinophils # (manual) 0.13 K/uL (0-0.50); Eosinophils % (manual) 2 %; Large Granular Lymph # (manua 1.21 K/uL; Large Granular Lymph % (manual) 19 %; Lymphocytes # (manual) 2.17 K/uL (1.2-3.4); Lymphocytes % (manual) 34 %; Monocytes # (manual) 0.32 K/uL (0.11-0.59); Monocytes % (manual) 5 %; Neutrophils # (manual) 2.55 K/uL (1.40-6.50); Neutrophils % (manual) 40 %; RBC Morphology Unremarkable
--- NOTE | 2023-03-03 14:09 | Hospitalist Progress Note ---
Date of Service March 03, 2023 Assessment & Plan (1) Elevated LFTs: (2) Cirrhosis: (3) Acute Lyme disease with erythema migrans lesion 5 cm or greater in diameter: Plan Mr. Moreno is a 72-year-old male with past medical history significant for crest syndrome, pulmonary fibrosis, aortic valve sclerosis, GERD, BPH, lipodermatosclerosis of both lower extremities, generalized anxiety disorder, history of anaplasmosis, presents with not feeling well for about 2 weeks and went to PCP today and outpatient labs showed elevated LFTs and advised to come to the ER. Lyme screen was positive. Patient also noted to have scleral icterus. Imaging revealed concerns for cirrhosis and gallbladder thickening. MRCP did reveal cholelithiasis but no cholecystitis. Patient reports near resolution of symptoms Will continue regimen for Lyme disease. Autoimmune panel obtained this morning. LFTS appear to have plateaued. #Elevated LFTs #Icterus present*improved #Hepatitic steatosis with ?cirrhosis ?autoiumme eitology given known history Gallbladder ultrasound shows gallstones and possible early cirrhosis s/p MRCP, no sign of cholecystitis or duct dilatation Hepatitis panel negative Follow up autoimmune panel Trend CMP GI on consult, if no improvement will consider HIDA #Acute Lyme disease #erythema migrans lesions greater than 5 cm +Lyme serology, no inclusions on smear -Transition to po doxy 100mg BID for 10 days (EOT 03/11) #Crest syndrome c/b Pulmonary fibrosis 1. Diffuse parenchymal lung disease: Areas involved include subpleural reticular changes in the in upper lobes as well as focal fibrosis in right middle lobe, lingula and medial basal segments of lower lobes. The disease pattern noted could be due to episodes of recurrent aspiration. Given history of longstanding uncontrolled acid reflux, this remains a high possibility. Fibrotic NSIP due to scleroderma would be another differential. Dx 2000 SCL 70 ++ -No oxygen requirement or current medication #GERD -On omeprazole #Generalized anxiety disorder Ativan as needed #Multiple IPMN noted on MRCP -Repeat in 6 months DVT transition to lovenox, patient declines, wishes to ambulate Dispo contingent on LFT improvement Full code Admission and Anticipated Discharge Date Admission Date: March 01, 2023 Subjective Patient reports marked improvement since admission. Patient states rash has resolved. Patient states he has been walking the halls and feels near normal, noting that he has experienced near resolution of all symptoms Patient denies any abdominal pain or known history of liver issues, as well as any other acute concerns this am Review of Systems Review of Systems: All systems reviewed & are unremarkable except as noted in Subjective Physical Exam Eyes: no further signs of icterus ENMT: external ear and nose normal, oropharynx normal Neck: trachea midline, no thyromegaly Respiratory: normal respiratory effort, lungs clear to auscultation Cardiovascular: RRR, no murmur, no edema Gastrointestinal (Abdomen): normal bowel sounds, soft, nontender, no hepatosplenomegaly Musculoskeletal: no cyanosis or clubbing, extremities motor strength 5/5 Skin: improvement in skin coloration Results & Data Results & Data Vital Signs (Past 12 Hours) Vital Signs Temp Pulse Resp BP Pulse Ox O2 Del Method 03/03/23 07:04 36.5 C 78 16 127/78 97 Room Air Laboratory Results Short CBC 03/03/23 Range/Units 07:33 WBC 6.38 (4.8-10.8) K/ul Hgb 12.7 L (14.0-18.0) g/dl Hct 37.5 L (42.0-52.0) % Plt Count 221 (130-400) K/uL BMP 03/03/23 07:33 Sodium 138 Potassium 4.3 Chloride 105 Carbon Dioxide 27 BUN 16 Creatinine 0.91 Glucose 109 H Calcium 9.3 Liver Function 03/03/23 Range/Units 07:33 Total Bilirubin 1.7 H (0.2-1.0) mg/dl AST 103 H (13-39) U/L ALT 221 H (7-52) U/L Alkaline Phosphatase 274 H (34-104) U/L Albumin 4.0 (3.4-5.0) gm/dl Diagnostic Findings No new diagnostic data for review Medications Administered Home Medications Medication Instructions Recorded Confirmed Last Taken CYCLOBENZAPRINE HCL (FLEXERIL) 10 mg PO TID PRN Pain #0 tabs 06/13/15 03/01/23 Unknown LORAZEPAM (ATIVAN) 1 mg PO BID PRN Anxiety #0 tabs 06/13/15 03/01/23 Unknown albuterol sulfate 90 mcg/actuation 2 inh inhalation Q4H PRN Other 03/01/23 03/01/23 Unknown aerosol inhaler omeprazole 20 mg capsule,delayed 20 mg PO DAILY 09/07/2303/01/23 03/01/23 release Active Medications Generic Name Dose Route Start Last Admin Trade Name Yayo PRN Reason Stop Dose Admin Doxycycline Hyclate 100 mg 03/02/23 21:00 03/03/23 08:11 Doxycycline Hyclate 100 Mg Cap PO 03/12/23 20:59 100 mg BID MEI Administration Enoxaparin Sodium 40 mg 03/03/23 09:00 03/03/23 08:12 Enoxaparin Inj 40 Mg/0.4 Ml Syr SQ 04/02/23 08:59 40 mg QAM MEI Administration Pantoprazole Sodium 40 mg 03/02/23 09:00 03/03/23 08:11 Pantoprazole 40 Mg Tab PO 04/01/23 08:59 40 mg DAILY MEI Administration Tamsulosin HCl 0.4 mg 03/02/23 21:00 03/02/23 20:53 Tamsulosin Hcl 0.4 Mg Cap PO 04/01/23 20:59 0.4 mg HS MEI Administration
[2023-03-03] MEDS: TAMSULOSIN HCL 0.4 MG CAP PO SCH (20:51)
[2023-03-04 07:30] LABS: Albumin Globulin Ratio 1.1 (0.9-2); Albumin Level 3.9 gm/dl (3.4-5.0); BUN Creatinine Ratio 15.5 (10-20); Bilirubin,Total 1.3 mg/dl (0.2-1.0); Calcium 9.5 mg/dl (8.6-10.3); Est GFR (African American) 73.5 ml/min; Est GFR (Non-African American) 63.5 ml/min; Globulin 3.6 gm/dl (2.5-4.0); Potassium 4.8 mmol/L (3.5-5.1); Total Protein 7.5 gm/dl (6.0-8.3)
[2023-03-04] MEDS: PANTOprazole 40 MG TAB PO SCH (08:03)
[2023-03-04] MEDS: ENOXAPARIN INJ 40 MG/0.4 ML SYR SQ SCH (08:03)
[2023-03-04] MEDS: DOXYCYCLINE HYCLATE 100 MG CAP PO SCH (08:03)
--- NOTE | 2023-03-04 18:23 | Discharge Summary ---
Discharge Summary Date of Service March 04, 2023 Notes For Next Care Provider [ ] CMP in 3-4 days [ ] GI referral for follow up on autoimmune liver panel and ?early cirrhosis [ ] IPMNs on MRCP, repeat in 6 months Medication Changes From Visit -Doxycycline 100 mg BID for 10 days total (EOT 03/11) Admission HPI Per Admitting Provider 72-year-old male with past medical history significant for crest syndrome, pulmonary fibrosis, aortic valve sclerosis, GERD, BPH, lipodermatosclerosis of both lower extremities, generalized anxiety disorder, history of anaplasmosis, presents with not feeling well for about 2 weeks and went to PCP today and outpatient labs showed elevated LFTs and advised to come to the ER. Patient states he took out tick about 5 weeks ago, [place] A month ago he had a fever but that subsided. Since last 2 weeks he is having low-grade fevers in the evenings with night sweats. Loss of appetite last 2 weeks. Not feeling well. Urine became dark last couple of weeks. On and off constipation. No abdominal pain. No chest pain. No back pain. No headaches. No blurred visions or earache or runny nose or sore throat. Occasional cough. Symptoms of difficulty swallowing sometimes because of his GERD. No nausea. Currently resting comfortably hemodynamically stable. Past medical history as mentioned above Past surgical history colonoscopy. Social history . Smoked from 1970- 1972 0.25 packs a day. Alcohol occasional. No drug use Family history father had prostate cancer, hypertension. Mother had CAD fatal [place] at age of 73, hypertension. Sister had TB at age of 9. Brother has diabetes, hypertension. Principal Dx & Hospital Course #1 = Principal Diagnosis (1) Elevated LFTs: (2) Cirrhosis: (3) Acute Lyme disease with erythema migrans lesion 5 cm or greater in diameter: Plan Mr. Moreno is a 72-year-old male with past medical history significant for crest syndrome, pulmonary fibrosis, aortic valve sclerosis, GERD, BPH, lipodermatosclerosis of both lower extremities, generalized anxiety disorder, history of anaplasmosis, who presented 03/01 with general malaise and rash, as well as abnormal outpatient LFTs. Lyme screen was positive and patient started on doxycycline. Patient also noted to have scleral icterus. US revealed concerns for cirrhosis and gallbladder thickening. GI was consulted and performed MRCP on 03/02 which did reveal cholelithiasis, but no cholecystitis. Patient reported near resolution of symptoms and labs over 72 hours revealed continued improvement of LFTs. On day of discharge, signs of jaundice resolved, patient was ambulating without difficulty, eating without concerns, and tolerating PO doxycyline. Exam also revealed resolution of rash. #Elevated LFTs * downtrending #Icterus present*resolved #Hepatitic steatosis with ?cirrhosis ?autoiumme eitology given known history Gallbladder ultrasound shows gallstones and possible early cirrhosis s/p MRCP, no sign of cholecystitis or duct dilatation Hepatitis panel negative Follow up autoimmune panel -OP GI follow up to be arranged #Acute Lyme disease #erythema migrans lesions greater than 5 cm +Lyme serology, no inclusions on smear Continue po doxy 100mg BID for 10 days (EOT 03/11) #Crest syndrome c/b Pulmonary fibrosis Stable -No oxygen requirement or current medication #GERD -On omeprazole #Generalized anxiety disorder Stable #Multiple IPMN noted on MRCP -Repeat in 6 months Discharge Exam Constitutional WD/WN, vitals as above Eyes PERRL, conjunctivae normal, anicteric sclerae ENMT external ear and nose normal, oropharynx normal Cardiovascular RRR, no murmur, no edema Gastrointestinal (Abdomen) normal bowel sounds, soft, nontender, no hepatosplenomegaly Musculoskeletal no cyanosis or clubbing, extremities motor strength 5/5 Skin resolution of rash Updated Medication List Medication Instructions Recorded Confirmed Type CYCLOBENZAPRINE HCL (FLEXERIL) 10 mg PO TID PRN Pain #0 tabs 06/13/15 03/01/23 History LORAZEPAM (ATIVAN) 1 mg PO BID PRN Anxiety #0 tabs 06/13/15 03/01/23 History albuterol sulfate 90 mcg/actuation 2 inh inhalation Q4H PRN Other 03/01/23 03/01/23 History aerosol inhaler omeprazole 20 mg capsule,delayed 20 mg PO DAILY 03/01/23 03/01/23 History release doxycycline hyclate 100 mg capsule 100 mg PO BID 7 days #15 caps 03/04/23 Rx Hospital Stay Data Consultations 03/01/23 20:35 ED Decision to Admit Stat 03/02/23 08:00 Consult Gastroenterology Routine Diagnostic Imagining Performed 03/01/23 17:49 US gallbladder Stat 03/02/23 07:10 MR MRCP Urgent Pending Results Patient Have Any Pending Studies at Discharge: Yes Discharge Instructions Given to Patient (Per Discharging Provider) You were admitted because of concerns of feeling generally unwell with the appearance of a new rash, as well as labs concerning for liver enzyme elevations. Additionally, your labs were notable for Lyme disease. After starting on doxycycline, you appeared to improve significantly. Given the liver enzyme elevation, we obtained imaging to assess if you possibly had some disease process of the liver or gallbladder, which can lead to the increase in the enzymes. The US revealed signs of fatty liver and early signs of cirrhosis, as well as thickening of the gallbladder. The other test performed (MRCP), revealed gallstones, but no signs of impaction or infection. Additionally the MRCP revealed, tiny spots in the pancreas (IPMNs) which are often of no concern, but should be follow up upon in 6 months. Here is the following recommended plan after discharge: -Continue Doxycycline 100mg twice a day (complete the prescription) -Follow up with repeat liver blood test by Saturday (03/08) -Follow up with primary care provider -Will arrange with Case Management to discuss GI follow up for your liver You can continue your home flomax and other medications as directed by your provider. Total Time Total Time Spent Total Time Spent (In Minutes): Time spent evaluating patient, direct bedside care, chart review, placing discharge orders, interpretation of diagnostic studies, discussion with consultants, patient, and family members, as well as other required patient management activities is 45 minutes.
--- NOTE | 2023-03-04 20:26 | Electrocardiogram Report ---
Test Reason : Blood Pressure : / mmHG Vent. Rate : 088 BPM Atrial Rate : 088 BPM P-R Int : 142 ms QRS Dur : 092 ms QT Int : 370 ms P-R-T Axes : 054 -11 014 degrees QTc Int : 447 ms Sinus rhythm with occasional Premature ventricular complexes Otherwise normal ECG No previous ECGs available Confirmed by Td Morin ([id number]) on 03/04/2023 8:25:54 PM Referred By: REFERRED SELF Confirmed By:Td Morin
[2023-03-06 10:29] LABS: Babesia microti DNA Not Detected (Not Detected)
[2023-03-06 14:12] LABS: Anti Mitochondrial Antibody NEGATIVE (NEGATIVE); Anti Nuclear Antibody Screen NEGATIVE (NEGATIVE); Ceruloplasmin 38 mg/dL (18-36); Smooth Muscle Antibody NEGATIVE (NEGATIVE)
[2023-03-06 14:29] LABS: 18KDIGG Band NON-REACTIVE; 23KDIGG Band REACTIVE; 23KDIGM Band REACTIVE; 28KDIGG Band NON-REACTIVE; 30KDIGG Band NON-REACTIVE; 39KDIGG Band NON-REACTIVE; 39KDIGM Band REACTIVE; 41KDIGG Band REACTIVE; 41KDIGM Band REACTIVE; 45KDIGG Band NON-REACTIVE; 58KDIGG Band REACTIVE; 66KDIGG Band NON-REACTIVE; 93KDIGG Band NON-REACTIVE; Lyme Antibodies, WB IgG NEGATIVE (NEGATIVE); Lyme Antibodies, WB IgM POSITIVE (NEGATIVE)
== END 2023-03-04 13:55 | disposition home or self-care (01) | DRG 869 ==
LOC: ED 16:57 → 3N 22:16